=== PATIENT | female | born 1985 | race Caucasian/White ===

== ENCOUNTER 2019-05-11 13:09 | Outpatient (CLI) | payer MEDICAID ==
[~2019-05-11 13:09] MED LIST: NAPR-56 PO
== END 2019-05-11 23:59 | disposition home or self-care (01) ==
LOC: RAD 13:09
PROVIDERS: ATTEND Psychiatry & Neurology Neurology
DX: R56.9 Unspecified convulsions (principal)
CPT/HCPCS: 95816

== ENCOUNTER 2020-09-25 23:12 | Inpatient (IN) | payer MEDICAID ==
[~2020-09-25] VITALS: Ht 157.5 cm; Wt 67.2 kg
[2020-09-25] MEDS ORDERED: LORazepam 2 mg/ml vial IV ONE (23:15)
[2020-09-25] MEDS ORDERED: normal saline 1000ML IV soln IVB ONE (23:15)
[2020-09-25] MEDS ORDERED: magnesium 2GM in 50ml NS 50 ML IV ONE (23:15)
[2020-09-25 23:33] LABS: BASOPHILS # (AUTO) 0.1 X10'3 (0-0.2); BASOPHILS % (AUTO) 0.6 % (0-1); EOSINOPHILS # (AUTO) 0.2 X10'3 (0-0.9); EOSINOPHILS % (AUTO) 2.5 % (0-6); HEMATOCRIT 41.1 % (35.0-45.0); HEMOGLOBIN 14.2 g/dl (12.0-16.0); LYMPHOCYTES # (AUTO) 2.8 X10'3 (1.1-4.8); LYMPHOCYTES % (AUTO) 29.4 % (21-51); MEAN CORPUSCULAR HEMOGLOBIN 31.1 PG (27.0-31.0); MEAN CORPUSCULAR HGB CONC 34.6 g/dL (33.0-36.5); MEAN CORPUSCULAR VOLUME 89.8 FL (78-98); MEAN PLATELET VOLUME 7.5 FL (7.4-10.4); MONOCYTES # (AUTO) 0.7 X10'3 (0-0.9); MONOCYTES % (AUTO) 7.5 % (2-12); NEUTROPHILS # (AUTO) 5.7 X10'3 (1.8-7.7); PLATELET COUNT 298 X10'3 (140-440); RED BLOOD COUNT 4.58 X10'6 (4.20-5.60); RED CELL DISTRIBUTION WIDTH 12.6 % (11.5-14.5); WHITE BLOOD COUNT 9.5 X10'3 (4.5-11.0)
[2020-09-25] MEDS ORDERED: HYDROcodone/acetaminophen 5mg/325mg tablet PO ONE (23:40)
[2020-09-25 23:49] LABS: ALANINE AMINOTRANSFERASE 38 U/L (12-78); ALBUMIN 3.9 G/DL (3.4-5.0); ALBUMIN/GLOBULIN RATIO 1.2 (1.1-1.5); ALKALINE PHOSPHATASE 61 IU/L (46-116); ANION GAP 6 (8-16); ASPARTATE AMINO TRANSFERASE 17 U/L (10-37); BILIRUBIN,TOTAL 0.3 MG/DL (0.1-1.0); BLOOD UREA NITROGEN 13 MG/DL (7-18); BUN/CREATININE RATIO 14.8 (6.6-38.0); CALCIUM 9.3 MG/DL (8.5-10.1); CHLORIDE 108 MMOL/L (99-107); CREATINE KINASE 84 U/L (26-192); CREATININE 0.88 MG/DL (0.40-0.90); GLUCOSE 88 MG/DL (70-104); SODIUM 143 MMOL/L (135-145); TOTAL CARBON DIOXIDE 29.4 MMOL/L (24-32); TOTAL PROTEIN 7.2 G/DL (6.4-8.2); eGFR 72 ML/MIN
--- NOTE | 2020-09-26 00:09 | NUR ---
PATIENT'S BRANDY PHONE NUMBER [phone]. ABLE TO PICK PATIENT UP WHEN READY
[2020-09-26 01:19] LABS: CLARITY,URINE CLEAR (Clear); COLOR,URINE YELLOW (Yellow); GLUCOSE, URINE NEGATIVE (Neg); KETONES,URINE NEGATIVE (Neg); LEUKOCYTE ESTERASE ,URINE NEGATIVE (Neg); NITRITES, URINE NEGATIVE (Neg); OCCULT BLOOD,URINE NEGATIVE (Neg); PH,URINE 7.5 (4.8-8.0); PROTEIN,URINE NEGATIVE (Neg); UA COLLECTION TYPE CLN CATCH MIDSTREAM; UROBILINOGEN,URINE 0.2 E.U/dL (0.2-1.0)
[2020-09-26] MEDS ORDERED: magnesium 2GM in 50ml NS 50 ML IV PRN (01:35)
[2020-09-26] MEDS ORDERED: acetaminophen 325mg tablet PO PRN (01:35)
[2020-09-26] MEDS ORDERED: magnesium 4gm in 100ml NS 100 ML IV PRN (01:35)
[2020-09-26] MEDS ORDERED: potassium CL 10mEq/100ml bag 100 ML IV PRN ×2 (01:35)
[2020-09-26] MEDS ORDERED: ondansetron/PF 4mg/2ml inj IV PRN (01:35)
[2020-09-26] MEDS ORDERED: magnesium hydroxide 30ml (MOM) UD suspension PO PRN (01:35)
[2020-09-26] MEDS ORDERED: potassium Cl 20 mEq SR tablet PO PRN ×2 (01:35)
[2020-09-26] MEDS ORDERED: magnesium Cl slow-release 64mg tablet PO PRN (01:35)
[2020-09-26] MEDS ORDERED: mag hydrox/Alum hydrox/simeth 30ml oral suspension PO PRN (01:35)
[2020-09-26] MEDS ORDERED: RIZA10TA27 PO (01:58)
--- NOTE | 2020-09-26 02:50 | NUR ---
0200: Patient arrived to unit while I was at lunch. Charge nurse took report and settled patient in. I received report from charge nurse when I got back from lunch and took over patient care.
[2020-09-26 03:02] VITALS: BP 111/77
--- NOTE | 2020-09-26 06:00 | NUR ---
Patient in room [facility]. I have received report from KRISHNA Ga and had the opportunity to ask questions and assume patient care.
--- NOTE | 2020-09-26 06:24 | NUR ---
Problems reprioritized. Patient report given, questions answered & plan of care reviewed with KRISHNA Todd.
[2020-09-26 06:56] VITALS: BP 104/66
--- NOTE | 2020-09-26 07:45 | NUR ---
paged regarding if he'd like to order PRN ativan for patient, no new orders.
[2020-09-26] MEDS: K and/or MAG REPLACEMENT MC SCH ×2 (08:00→20:00)
[2020-09-26] MEDS: levetiracetam 250mg tablet PO SCH ×2 (10:25→19:50)
[2020-09-26 11:00] VITALS: BP 109/77
--- NOTE | 2020-09-26 11:08 | NUR ---
Patient had a seizure, MD paged regarding ordering ativan. Patient already received PO Keppra 45 minutes prior. Patient used call light prior to seizure and patient was found to be seizing. Patient was placed on her side until seizure subsided.
[2020-09-26] MEDS ORDERED: LORazepam 2 mg/ml vial IM PRN (11:15)
--- NOTE | 2020-09-26 17:15 | NUR ---
Patient had another 5min seizure, MD notified, seizure subsided after 1mg of ativan administration.
[2020-09-26 18:00] VITALS: BP 111/71
--- NOTE | 2020-09-26 18:00 | NUR ---
Problems reprioritized. Patient report given, questions answered & plan of care reviewed with KRISHNA Ga
--- NOTE | 2020-09-26 18:30 | NUR ---
Patient in room [facility]. I have received report from KRISHNA Todd and had the opportunity to ask questions and assume patient care.
[2020-09-26 23:37] VITALS: BP 116/73
[2020-09-27 05:45] LABS: BASOPHILS # (AUTO) 0.1 X10'3 (0-0.2); BASOPHILS % (AUTO) 0.7 % (0-1); EOSINOPHILS # (AUTO) 0.2 X10'3 (0-0.9); EOSINOPHILS % (AUTO) 2.7 % (0-6); HEMATOCRIT 40.5 % (35.0-45.0); HEMOGLOBIN 13.6 g/dl (12.0-16.0); LYMPHOCYTES # (AUTO) 2.2 X10'3 (1.1-4.8); LYMPHOCYTES % (AUTO) 29.2 % (21-51); MEAN CORPUSCULAR HEMOGLOBIN 30.1 PG (27.0-31.0); MEAN CORPUSCULAR HGB CONC 33.7 g/dL (33.0-36.5); MEAN CORPUSCULAR VOLUME 89.3 FL (78-98); MEAN PLATELET VOLUME 7.6 FL (7.4-10.4); MONOCYTES # (AUTO) 0.6 X10'3 (0-0.9); NEUTROPHILS # (AUTO) 4.4 X10'3 (1.8-7.7); NEUTROPHILS % (AUTO) 59.4 % (42-75); PLATELET COUNT 278 X10'3 (140-440); RED BLOOD COUNT 4.53 X10'6 (4.20-5.60); RED CELL DISTRIBUTION WIDTH 12.3 % (11.5-14.5); WHITE BLOOD COUNT 7.4 X10'3 (4.5-11.0)
[2020-09-27 06:00] LABS: ALANINE AMINOTRANSFERASE 37 U/L (12-78); ALBUMIN 3.6 G/DL (3.4-5.0); ALBUMIN/GLOBULIN RATIO 1.1 (1.1-1.5); ALKALINE PHOSPHATASE 58 IU/L (46-116); ANION GAP 5 (8-16); ASPARTATE AMINO TRANSFERASE 19 U/L (10-37); BILIRUBIN,TOTAL 0.5 MG/DL (0.1-1.0); BLOOD UREA NITROGEN 10 MG/DL (7-18); BUN/CREATININE RATIO 10.4 (6.6-38.0); CALCIUM 9.1 MG/DL (8.5-10.1); CHLORIDE 109 MMOL/L (99-107); CREATININE 0.96 MG/DL (0.40-0.90); GLUCOSE 93 MG/DL (70-104); MAGNESIUM 2.2 MG/DL (1.5-2.4); POTASSIUM 4.1 MMOL/L (3.5-5.1); SODIUM 143 MMOL/L (135-145); TOTAL CARBON DIOXIDE 28.9 MMOL/L (24-32); TOTAL PROTEIN 6.9 G/DL (6.4-8.2); eGFR 65 ML/MIN
--- NOTE | 2020-09-27 06:40 | NUR ---
Problems reprioritized. Patient report given, questions answered & plan of care reviewed with KRISHNA Lei.
--- NOTE | 2020-09-27 06:44 | NUR ---
Patient in room [facility]. I have received report from Harmeet KELLER and had the opportunity to ask questions and assume patient care.
[2020-09-27 07:08] VITALS: BP 94/60
[2020-09-27] MEDS: K and/or MAG REPLACEMENT MC SCH ×2 (08:00→19:09)
--- NOTE | 2020-09-27 08:17 | NUR ---
Patient turned travel services professional light., Staffing entered patients room she appeared to be having a seizure eyes fluttering and not verbally responsive. Patients seizure continued and Ativan was given per MD orders. Dr Gutierrez paged at the time Dr Gutierrez came to the floor patient was coming out of seizure and more verbal. Dr Gutierrez will check patients labs and address as needed.
[2020-09-27] MEDS: LORazepam 2 mg/ml vial IV PRN ×3 (08:26→22:33)
--- NOTE | 2020-09-27 08:31 | NUR ---
PAGER ID: [phone] MESSAGE: Veronica Surg [phone] Re: Darby. Patient having mild seizure: Ativan given can you come see patient
[2020-09-27] MEDS: levetiracetam 250mg tablet PO SCH ×2 (08:40→20:00)
[2020-09-27 11:00] VITALS: BP 104/68
--- NOTE | 2020-09-27 12:35 | NUR ---
Pt had another seizure lasted 23:20 min. Pt given ativan and Dr Gutierrez was notified. pt states she has an ora before her seizure begins. Pt was in catatonic state, foaming out the mouth, and eyes were inward. eye lids are flapping. Pt states her muscles were achy and had a headache. Pt in and out of seizure. Very tired after seizure episode. Charge notified as well as Dr Gutierrez.
[2020-09-27] MEDS: acetaminophen 325mg tablet PO PRN (17:58)
[2020-09-27 18:00] VITALS: BP 112/73
--- NOTE | 2020-09-27 18:30 | NUR ---
Problems reprioritized. Patient report given, questions answered & plan of care reviewed with Prudence RN.
--- NOTE | 2020-09-27 18:58 | NUR ---
Patient in room [facility]. I have received report from TIESHA KELLER and had the opportunity to ask questions and assume patient care.
--- NOTE | 2020-09-27 22:20 | NUR ---
Patient had a seizure that lasted for 4 minutes. Ativan was not administered and will keep monitoring patient.
--- NOTE | 2020-09-27 22:39 | NUR ---
PATIENT HAD ANOTHER SEIZURE FROM 2228 TO 2229. ATIVAN GIVEN PER MD GALEAS.
[2020-09-28 00:33] VITALS: BP 104/80
[2020-09-28 06:30] VITALS: BP 106/65
--- NOTE | 2020-09-28 06:36 | NUR ---
Problems reprioritized. Patient report given, questions answered & plan of care reviewed with ZACKARY RN.
--- NOTE | 2020-09-28 06:40 | NUR ---
Patient in room [facility]. I have received report from KRISHNA Sol and had the opportunity to ask questions and assume patient care.
[2020-09-28 08:42] LABS: BASOPHILS % (AUTO) 0.5 % (0-1); EOSINOPHILS # (AUTO) 0.3 X10'3 (0-0.9); EOSINOPHILS % (AUTO) 2.9 % (0-6); HEMATOCRIT 43.1 % (35.0-45.0); HEMOGLOBIN 14.8 g/dl (12.0-16.0); LYMPHOCYTES # (AUTO) 2.2 X10'3 (1.1-4.8); LYMPHOCYTES % (AUTO) 25.5 % (21-51); MEAN CORPUSCULAR HEMOGLOBIN 30.9 PG (27.0-31.0); MEAN CORPUSCULAR HGB CONC 34.4 g/dL (33.0-36.5); MEAN CORPUSCULAR VOLUME 89.7 FL (78-98); MEAN PLATELET VOLUME 7.6 FL (7.4-10.4); MONOCYTES # (AUTO) 0.7 X10'3 (0-0.9); MONOCYTES % (AUTO) 8.5 % (2-12); NEUTROPHILS # (AUTO) 5.4 X10'3 (1.8-7.7); NEUTROPHILS % (AUTO) 62.6 % (42-75); PLATELET COUNT 297 X10'3 (140-440); RED BLOOD COUNT 4.81 X10'6 (4.20-5.60); RED CELL DISTRIBUTION WIDTH 12.3 % (11.5-14.5); WHITE BLOOD COUNT 8.7 X10'3 (4.5-11.0)
[2020-09-28 08:57] LABS: ALANINE AMINOTRANSFERASE 35 U/L (12-78); ALBUMIN 3.8 G/DL (3.4-5.0); ALBUMIN/GLOBULIN RATIO 1.1 (1.1-1.5); ALKALINE PHOSPHATASE 64 IU/L (46-116); ANION GAP 6 (8-16); ASPARTATE AMINO TRANSFERASE 18 U/L (10-37); BILIRUBIN,TOTAL 0.4 MG/DL (0.1-1.0); BLOOD UREA NITROGEN 12 MG/DL (7-18); BUN/CREATININE RATIO 12.6 (6.6-38.0); CALCIUM 9.3 MG/DL (8.5-10.1); CHLORIDE 107 MMOL/L (99-107); CREATININE 0.95 MG/DL (0.40-0.90); GLUCOSE 91 MG/DL (70-104); MAGNESIUM 2.1 MG/DL (1.5-2.4); POTASSIUM 3.9 MMOL/L (3.5-5.1); SODIUM 143 MMOL/L (135-145); TOTAL CARBON DIOXIDE 30.1 MMOL/L (24-32); TOTAL PROTEIN 7.3 G/DL (6.4-8.2); eGFR 66 ML/MIN
[2020-09-28] MEDS: K and/or MAG REPLACEMENT MC SCH ×2 (09:30→20:00)
[2020-09-28] MEDS ORDERED: ALPR1TAB2 PO (10:10)
[2020-09-28] MEDS: levetiracetam 250mg tablet PO SCH ×3 (10:34→20:24)
[2020-09-28 11:00] VITALS: BP 112/75
[2020-09-28] MEDS: LORazepam 2 mg/ml vial IV PRN ×2 (13:03→13:07)
[2020-09-28] MEDS ORDERED: LEVE250T PO (13:13)
[2020-09-28] MEDS: acetaminophen 325mg tablet PO PRN (13:29)
--- NOTE | 2020-09-28 18:32 | NUR ---
Patient in room [facility]. I have received report from SUKH KELLER and had the opportunity to ask questions and assume patient care. Addendum: 09/28/20 at 1832 by Mariana Agustin RN Amended: Links added.
--- NOTE | 2020-09-28 18:50 | NUR ---
Problems reprioritized. Patient report given, questions answered & plan of care reviewed with KRISHNA Peña.
[2020-09-28 20:00] VITALS: BP 112/80
--- NOTE | 2020-09-28 20:31 | NUR ---
zoë palacios she confirmed dose computer would not scan.
--- NOTE | 2020-09-28 21:00 | NUR ---
RECEIVED CALL [facility] PODIATRIC PHYSICIAN THAT SHE WOULD COME IN FOR 24 HOUR EEG TEST TO SEE WHAT WAS GOING ON.
--- NOTE | 2020-09-28 22:00 | NUR ---
BRICKMASON CONTRACTOR IN AND SET PT UP. AFTER SET UP DONE EDUCATION OF STAFF SHE DID FLASHING LIGHT STIMULATION AND NOTED PT EYES TWITCHING AND HAND AND ARM MOVEMENT. PT UNRESPONSIVE TO VERBAL STIMULI AND TOUCH. NOTED IT WAS A MILD ONE.
--- NOTE | 2020-09-28 22:40 | NUR ---
PT HAD PUSHED CALL LIGHT SAID TO TRIM DIE MAKER SHE FELT TWITCHING AND CARE rN CAME IN AFTER THE FACT TO [facility] THE EVENT.
--- NOTE | 2020-09-28 23:27 | NUR ---
resting eyes closed no s&s of distress.
[2020-09-29 00:15] VITALS: BP 100/75
--- NOTE | 2020-09-29 01:14 | NUR ---
awake on her cell phone said unable to sleep at this time.
--- NOTE | 2020-09-29 01:26 | NUR ---
turned to right side.
--- NOTE | 2020-09-29 01:40 | NUR ---
called lip twitching and noted right foot twitching up and down shaking. marked on computer and on camera noted unable to see foot right foot twitching did about 2 minutes. then stopped.
--- NOTE | 2020-09-29 02:35 | NUR ---
resting without changes.
--- NOTE | 2020-09-29 03:51 | NUR ---
resting without changes.
--- NOTE | 2020-09-29 04:55 | NUR ---
up to bedside commode to void then set back up to comfortable position in bed.
[2020-09-29 05:47] LABS: BASOPHILS # (AUTO) 0.1 X10'3 (0-0.2); BASOPHILS % (AUTO) 0.7 % (0-1); EOSINOPHILS # (AUTO) 0.3 X10'3 (0-0.9); EOSINOPHILS % (AUTO) 2.8 % (0-6); HEMATOCRIT 41.9 % (35.0-45.0); HEMOGLOBIN 14.7 g/dl (12.0-16.0); LYMPHOCYTES # (AUTO) 2.7 X10'3 (1.1-4.8); LYMPHOCYTES % (AUTO) 30.3 % (21-51); MEAN CORPUSCULAR HEMOGLOBIN 31.3 PG (27.0-31.0); MEAN CORPUSCULAR HGB CONC 35.2 g/dL (33.0-36.5); MEAN CORPUSCULAR VOLUME 88.9 FL (78-98); MEAN PLATELET VOLUME 7.6 FL (7.4-10.4); MONOCYTES # (AUTO) 0.7 X10'3 (0-0.9); MONOCYTES % (AUTO) 7.8 % (2-12); NEUTROPHILS # (AUTO) 5.3 X10'3 (1.8-7.7); NEUTROPHILS % (AUTO) 58.4 % (42-75); PLATELET COUNT 292 X10'3 (140-440); RED BLOOD COUNT 4.71 X10'6 (4.20-5.60); RED CELL DISTRIBUTION WIDTH 12.3 % (11.5-14.5); WHITE BLOOD COUNT 9.1 X10'3 (4.5-11.0)
--- NOTE | 2020-09-29 06:10 | NUR ---
Patient in room [facility]. I have received report from KRISHNA Peña and had the opportunity to ask questions and assume patient care.
[2020-09-29 06:13] LABS: ALANINE AMINOTRANSFERASE 35 U/L (12-78); ALBUMIN 3.7 G/DL (3.4-5.0); ALKALINE PHOSPHATASE 59 IU/L (46-116); ANION GAP 7 (8-16); ASPARTATE AMINO TRANSFERASE 19 U/L (10-37); BILIRUBIN,TOTAL 0.4 MG/DL (0.1-1.0); BLOOD UREA NITROGEN 12 MG/DL (7-18); BUN/CREATININE RATIO 12.8 (6.6-38.0); CALCIUM 9.2 MG/DL (8.5-10.1); CHLORIDE 107 MMOL/L (99-107); CREATININE 0.94 MG/DL (0.40-0.90); GLUCOSE 90 MG/DL (70-104); POTASSIUM 3.8 MMOL/L (3.5-5.1); SODIUM 142 MMOL/L (135-145); TOTAL CARBON DIOXIDE 28.1 MMOL/L (24-32); TOTAL PROTEIN 7.3 G/DL (6.4-8.2); eGFR 67 ML/MIN
--- NOTE | 2020-09-29 06:15 | NUR ---
PT RESTING REPORT GIVEN TO ZACKARY AND AWARE OF WHERE TO [facility] COMPUTER IF SEIZURE OCCURS. ALL QUESTIONS ANSWERED.
[2020-09-29 06:30] VITALS: BP 105/70
--- NOTE | 2020-09-29 07:05 | NUR ---
Problems reprioritized. Patient report given, questions answered & plan of care reviewed with ZACKARY KELLER. Addendum: 09/29/20 at 0705 by Mariana Agustin RN Amended: Links added.
[2020-09-29] MEDS: K and/or MAG REPLACEMENT MC SCH (08:00)
[2020-09-29] MEDS: levetiracetam 250mg tablet PO SCH (09:33)
[2020-09-29] MEDS ORDERED: RIZA10TA27 PO (10:42)
[2020-09-29 11:00] VITALS: BP 100/70
[2020-09-29] MEDS: acetaminophen 325mg tablet PO PRN ×2 (12:13→18:16)
[2020-09-29] MEDS: LORazepam 2 mg/ml vial IV PRN ×2 (13:57→14:12)
[2020-09-29 14:45] VITALS: BP 114/80
--- NOTE | 2020-09-29 14:45 | NUR ---
Pt had a 22 minute seizure/pseudoseizure in which she appeared to be coming out of a few times during the 22 minutes. Pt able to accurately answer 2 questions during the course of the seizure otherwise pt unaware. Gave pt 1mg lorazepam x2. First 1mg given approx 15mins after seizure began due to unaware of seizure happening due to no staff saw pt's call light on for the 1st ten mins due to all staff attending to other pt care duties & then it takes a few mins to obtain & waste the lorazepam from the [facility]. Due to assessing pt for entire seizure episode & giving it a few mins to make sure pt was not going to begin seizing again paged a few mins after the seizure stopped. Also, no other staff available to page MD due to attending to other pt care. MD arrived to assess pt & stated to still DC pt. called back a few mins later to request VS & order PT eval be done in appox 1/2 hr.
--- NOTE | 2020-09-29 18:30 | NUR ---
DC inst provided to pt & pt's via phone. IV DC'd, tip intact. All belongings sent w/pt. WC to front lobby.
== END 2020-09-29 18:30 | disposition home or self-care (01) | DRG 53 ==
LOC: ER 23:13 → ED HOLD 09-26 01:35 → OBSVTOIN 09-26 01:45 → SUR 3N 09-26 02:00
PROVIDERS: ADMIT Family Medicine; ATTEND Internal Medicine
PROC: 4A00X4Z Measurement of Central Nervous Electrical Activity, External Approach (ICD-10-PCS; 2020-09-28)
PROC: 4A00X4Z Measurement of Central Nervous Electrical Activity, External Approach (ICD-10-PCS; principal; 2020-09-29)
DX: G40.909 Epilepsy, unspecified, not intractable, without status epilepticus (principal); Z86.73 Personal history of transient ischemic attack (TIA), and cerebral infarction without residual deficits; G43.109 Migraine with aura, not intractable, without status migrainosus; F41.8 Other specified anxiety disorders
CPT/HCPCS: 36415; 70551; 71045; 80053; 81003; 82140; 82550; 82948; 83735; 85025; 87081; 93005; 95816; 95951; 96365; 97110; 97116; 97162; 99285; G0378; J2060; J2405; J3475; J7030

== ENCOUNTER 2020-10-19 14:44 | Emergency (ER) | payer MEDICAID ==
[~2020-10-19] VITALS: Ht 157.5 cm; Wt 67.0 kg
[~2020-10-19 14:44] MED LIST changes: +ALPR1TAB2 PO; +LEVE250T PO; +RIZA10TA27 PO
[2020-10-19] MEDS ORDERED: LORazepam 2 mg/ml vial ONE (15:20)
[2020-10-19] MEDS ORDERED: normal saline 1000ml 1,000 ML IV ONE (15:25)
[2020-10-19] MEDS ORDERED: levetiracetam inj 1,000 MG in normal saline 100ml IV soln 90 ML IV ONE (15:25)
--- NOTE | 2020-10-19 15:32 | NUR ---
patient had a mild tonic clonic type seizure that lasted for 1 minute after she had received im ativan. Nhan tamez
[2020-10-19 16:03] LABS: BASOPHILS # (AUTO) 0.1 X10'3 (0-0.2); BASOPHILS % (AUTO) 0.8 % (0-1); EOSINOPHILS # (AUTO) 0.2 X10'3 (0-0.9); EOSINOPHILS % (AUTO) 2.6 % (0-6); HEMATOCRIT 43.7 % (35.0-45.0); LYMPHOCYTES # (AUTO) 2.3 X10'3 (1.1-4.8); LYMPHOCYTES % (AUTO) 32.6 % (21-51); MEAN CORPUSCULAR HEMOGLOBIN 30.6 PG (27.0-31.0); MEAN CORPUSCULAR HGB CONC 34.2 g/dL (33.0-36.5); MEAN CORPUSCULAR VOLUME 89.4 FL (78-98); MEAN PLATELET VOLUME 7.8 FL (7.4-10.4); MONOCYTES # (AUTO) 0.4 X10'3 (0-0.9); MONOCYTES % (AUTO) 5.9 % (2-12); NEUTROPHILS # (AUTO) 4.1 X10'3 (1.8-7.7); NEUTROPHILS % (AUTO) 58.1 % (42-75); PLATELET COUNT 308 X10'3 (140-440); RED BLOOD COUNT 4.89 X10'6 (4.20-5.60); RED CELL DISTRIBUTION WIDTH 12.6 % (11.5-14.5)
--- NOTE | 2020-10-19 16:08 | NUR ---
spoke to on phone dr maria at [facility]
[2020-10-19 16:18] LABS: ALANINE AMINOTRANSFERASE 36 U/L (12-78); ALBUMIN 4.1 G/DL (3.4-5.0); ALBUMIN/GLOBULIN RATIO 1.1 (1.1-1.5); ALKALINE PHOSPHATASE 66 IU/L (46-116); ANION GAP 6 (8-16); ASPARTATE AMINO TRANSFERASE 21 U/L (10-37); BILIRUBIN,TOTAL 0.4 MG/DL (0.1-1.0); BLOOD UREA NITROGEN 19 MG/DL (7-18); BUN/CREATININE RATIO 20.4 (6.6-38.0); CALCIUM 9.4 MG/DL (8.5-10.1); CHLORIDE 108 MMOL/L (99-107); CREATININE 0.93 MG/DL (0.40-0.90); ETHANOL < 0.010 GM/DL (0.0-0.010); GLUCOSE 86 MG/DL (70-104); SODIUM 141 MMOL/L (135-145); TOTAL CARBON DIOXIDE 26.9 MMOL/L (24-32); TOTAL PROTEIN 7.8 G/DL (6.4-8.2); eGFR 68 ML/MIN
[2020-10-19] MEDS ORDERED: KEP500T PO (17:03)
[2020-10-19 18:00] VITALS: BP 110/75
== END 2020-10-19 18:26 | disposition home or self-care (01) ==
LOC: ER 14:45
DX: R56.9 Unspecified convulsions (principal); G43.909 Migraine, unspecified, not intractable, without status migrainosus; F41.9 Anxiety disorder, unspecified; Z86.69 Personal history of other diseases of the nervous system and sense organs; Z98.890 Other specified postprocedural states; Z91.018 Allergy to other foods; Z79.899 Other long term (current) drug therapy
CPT/HCPCS: 36415; 71045; 80053; 80320; 82140; 85025; 93005; 96365; 99285; J1953; J2060; J7030

== ENCOUNTER 2021-03-14 18:06 | Emergency (ER) | payer MEDICAID ==
[~2021-03-14] VITALS: Ht 157.5 cm; Wt 63.3 kg
[~2021-03-14 18:06] MED LIST changes: +KEP500T PO
--- NOTE | 2021-03-14 19:35 | NUR ---
PATIENT ALERTED ME THAT SHE WAS GOING TO HAVE A SEIZURE, ASSISTED HER TO SUPINE POSITION, TONIC CLONIC LASTING ABOUT 2 MINUTES. PATIENT RECOVERED W/O INJURY, VS STABLE, SEIZURES ARE CHRONIC AND SHE IS ON MEDICATION.
[2021-03-14] MEDS ORDERED: LORazepam 2 mg/ml vial IM ONE (20:00)
[2021-03-14] MEDS ORDERED: levetiracetam 250mg tablet PO ONE (20:25)
[2021-03-14] MEDS ORDERED: proparacaine 0.5% ophthalmic drops 15ml EACHEYE ONE (20:25)
[2021-03-14 20:44] LABS: BASOPHILS # (AUTO) 0.1 X10'3 (0-0.2); BASOPHILS % (AUTO) 0.6 % (0-1); EOSINOPHILS # (AUTO) 0.3 X10'3 (0-0.9); EOSINOPHILS % (AUTO) 2.8 % (0-6); HEMATOCRIT 36.8 % (35.0-45.0); HEMOGLOBIN 12.4 g/dl (12.0-16.0); LYMPHOCYTES # (AUTO) 2.5 X10'3 (1.1-4.8); LYMPHOCYTES % (AUTO) 27.2 % (21-51); MEAN CORPUSCULAR HEMOGLOBIN 30.9 PG (27.0-31.0); MEAN CORPUSCULAR HGB CONC 33.6 g/dL (33.0-36.5); MEAN CORPUSCULAR VOLUME 91.9 FL (78-98); MEAN PLATELET VOLUME 7.8 FL (7.4-10.4); MONOCYTES # (AUTO) 0.5 X10'3 (0-0.9); MONOCYTES % (AUTO) 5.8 % (2-12); NEUTROPHILS % (AUTO) 63.6 % (42-75); PLATELET COUNT 271 X10'3 (140-440); WHITE BLOOD COUNT 9.4 X10'3 (4.5-11.0)
--- NOTE | 2021-03-14 22:19 | NUR ---
PT'S BRANDY CALLED FOR UPDATE, . STATES SHE HAS "PSUEDO SEIZURES AND HER NEUROLOGIST IS IN [place]". ALSO STATES SHE WAS TAKEN OFF KEPPA RECENTLY
[2021-03-14 22:32] LABS: ALANINE AMINOTRANSFERASE 48 U/L (12-78); ALBUMIN 3.9 G/DL (3.4-5.0); ALBUMIN/GLOBULIN RATIO 1.1 (1.1-1.5); ALKALINE PHOSPHATASE 69 IU/L (46-116); ANION GAP 7 (8-16); ASPARTATE AMINO TRANSFERASE 23 U/L (10-37); BILIRUBIN,TOTAL 0.5 MG/DL (0.1-1.0); BLOOD UREA NITROGEN 20 MG/DL (7-18); BUN/CREATININE RATIO 22.7 (6.6-38.0); CALCIUM 8.9 MG/DL (8.5-10.1); CHLORIDE 106 MMOL/L (99-107); CREATININE 0.88 MG/DL (0.40-0.90); GLUCOSE 90 MG/DL (70-104); MAGNESIUM 2.3 MG/DL (1.5-2.4); SODIUM 143 MMOL/L (135-145); TOTAL PROTEIN 7.4 G/DL (6.4-8.2); eGFR 72 ML/MIN
--- NOTE | 2021-03-14 23:44 | NUR ---
CALLED TO GIVE PT RIDE HOME.
[2021-03-14] MEDS ORDERED: POLOS EACHEYE (23:51)
[2021-03-14 23:57] VITALS: BP 119/72
== END 2021-03-15 00:08 | disposition home or self-care (01) ==
LOC: ER 18:07
DX: T15.91XA Foreign body on external eye, part unspecified, right eye, initial encounter (principal); G43.909 Migraine, unspecified, not intractable, without status migrainosus; F41.9 Anxiety disorder, unspecified; Z91.018 Allergy to other foods; X58.XXXA Exposure to other specified factors, initial encounter; Y93.89 Activity, other specified; Y92.89 Other specified places as the place of occurrence of the external cause; Y99.8 Other external cause status
CPT/HCPCS: 36415; 80053; 83735; 85025; 96372; 99285; J2060